=== PATIENT | male | born 1970 | race Caucasian/White ===

== ENCOUNTER 2020-11-12 16:44 | Emergency (ER) | payer SELFPAY ==
[~2020-11-12] VITALS: Ht 167.6 cm; Wt 77.0 kg
[2020-11-12 17:08] LABS: BASOPHILS % 0.5 % (0.0-2.0); EOSINOPHILS % 1.6 % (0.0-5.0); HEMATOCRIT. 43.7 % (42.0-52.0); HEMOGLOBIN. 15.3 g/dL (14.0-18.0); LYMPHOCYTES % 42.4 % (20.0-50.0); MEAN CORPUSCULAR HEMOGLOBIN 31.9 pg (28.0-32.0); MEAN PLATELET VOLUME 8.4 fl (7.4-10.4); NEUTROPHILS % 48.5 % (40.0-76.0); PLATELET 181 x1000/uL (130-400); RED CELL DISTRIBUTION WIDTH 12.8 % (11.6-14.6)
[2020-11-12 17:15] LABS: CHLORIDE 107 mEq/L (98-107)
[2020-11-12 17:16] VITALS: BP 111/54
[2020-11-12 17:18] LABS: INR 1.1; PROTHROMBIN TIME 11.3 sec (9.6-11.0)
== END 2020-11-12 17:21 | disposition short-term general hospital (02) ==
LOC: ER 16:44
DX: S01.83XA Puncture wound without foreign body of other part of head, initial encounter (principal); S05.11XA Contusion of eyeball and orbital tissues, right eye, initial encounter; S05.8X1A Other injuries of right eye and orbit, initial encounter; E87.6 Hypokalemia; I10 Essential (primary) hypertension; X95.9XXA Assault by unspecified firearm discharge, initial encounter; Y93.9 Activity, unspecified; Y92.9 Unspecified place or not applicable
CPT/HCPCS: 36415; 80053; 85025; 99284